=== PATIENT | female | born 1965 | race Caucasian/White ===

== ENCOUNTER → 2021-02-28 | Outpatient (CLI) | payer BC ==
--- NOTE | 2021-02-28 13:58 | RAD ---
EXAM: Right lower extremity venous Doppler sonogram. HISTORY: Pain and swelling. TECHNIQUE: scale and color Doppler sonographic evaluation of the right lower extremity veins wit h spectral waveform analysis was performed. FINDINGS: There is normal color flow, normal compressibility and there are normal spectral waveforms in the common femoral, superficial femoral, popliteal, posterior tibial and greater saphenous veins. IMPRESSION: No Doppler evidence of lower extremity deep venous thrombosis. Electronically signed by: Brooke Quinn MD (02/28/2021 1:55 PM) [id number]
== END ==
LOC: US 13:13
PROVIDERS: ATTEND Nurse Practitioner
DX: M79.89 Other specified soft tissue disorders (principal)
CPT/HCPCS: 93971

== ENCOUNTER → 2021-03-09 | Outpatient (CLI) | payer BC ==
--- NOTE | 2021-03-09 13:19 | KCIC ---
EXAM: 1. Bilateral knees AP standing. 2. Bilateral knees 2 views. HISTORY: Right knee pain. COMPARISON: None. FINDINGS: On the left, there is mild medial compartmental joint space narrowing. There are tiny media l compartmental osteophytes. Alignment is maintained. There is no joint effusion. On the right, joint spaces are preserved. There are tiny osteophytes medially. Alignment is maintaine d There is no joint effusion. No fractures are identified bilaterally. There are subcutaneous venous varices on the right greater t anderson left. IMPRESSION: 1. 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 Electronically signed by: Lizzie Olguin MD (03/09/2021 1:16 PM) [id number]
== END ==
LOC: KCIC 10:24
PROVIDERS: ATTEND Nurse Practitioner
DX: M17.12 Unilateral primary osteoarthritis, left knee (principal)
CPT/HCPCS: 73565; 73562-50